=== PATIENT | female | born 1960 | race Caucasian/White ===

== ENCOUNTER → 2016-12-13 | Day surgery (SDC) | payer OTHER ==
[~2016-12-13] VITALS: Ht 170.2 cm; Wt 56.2 kg
[~2016-12-13] MED LIST: AMIT10TA6 PO; CA C1TAB86 PO; CHOL200047 PO; IBUP200C PO; MAGN100T5 PO; MELA1TAB16 PO; PYR50 PO; Sodium Chloride LOK Flush 10 mL Syringe IV PRN; VALE530C PO; VITA100T8 PO; fentaNYL-PF 50 mCg/mL 2 mL Inj IVPUSH PRN
[2016-12-13 08:20] VITALS: BP 140/93; PULSE 74; RESP 16; O2SAT 100
[2016-12-13] MEDS: 0.9% Sodium Chloride 1,000 ML IV SCH ×2 (08:29→09:14)
[2016-12-13 09:25] VITALS: BP 109/75; PULSE 57; RESP 16; O2SAT 100
[2016-12-13 09:35] VITALS: BP 102/67; PULSE 55; RESP 16; O2SAT 100
[2016-12-13 09:45] VITALS: BP 108/69; PULSE 51; RESP 16; O2SAT 100
--- NOTE | 2016-12-13 11:08 | ENDO ---
[address] [address] ENDOSCOPY PROCEDURE PATIENT: LYNDSAY ROA : 1960 MR#: [id number] ADMIT: 12/13/2016 JOB ID: [id number] DATE: 12/13/2016 PROCEDURE: Colonoscopy. INDICATION: Personal history of colon polyps. The patient's ASA classification is 1. Mallampati score is 2. MEDICATIONS: 1. Versed 3 mg. 2. Fentanyl 75 mcg. INSTRUMENT USED: PCF H 180 AL PREPARATION QUALITY: Was good. PROCEDURE DETAILS: After informed consent was obtained, the patient was brought into the GI suite, where she was placed on oxygen via nasal cannula and monitored with continuous pulse oximeter, telemetry and blood pressure monitoring. A time-out was performed. Then, she was placed in the left lateral decubitus position and medications were administered for sedation. Digital rectal examination was performed. It was unremarkable. The colonoscope was then inserted into the rectum and advanced under direct visualization to the cecum, which was identified by the presence of the ileocecal valve and appendiceal orifice. In the transverse colon, there was an approximately 2-4 mm sessile polyp that was removed with a cold snare. Polyp, however, was not retrieved. The remainder of the colon examination was otherwise unremarkable. IMPRESSION: Transverse colon polyp. RECOMMENDATIONS: Repeat colonoscopy in five years, sooner if symptoms should dictate. COMPLICATIONS: None. ESTIMATED BLOOD LOSS: Less than 5 mL.
== END | disposition home or self-care (01) ==
LOC: END 00:28
PROVIDERS: ATTEND Internal Medicine Gastroenterology
DX: Z12.11 Encounter for screening for malignant neoplasm of colon (principal); K63.5 Polyp of colon; K59.00 Constipation, unspecified; R10.9 Unspecified abdominal pain; G47.00 Insomnia, unspecified; R35.0 Frequency of micturition; Z86.010 Personal history of colon polyps; Z79.899 Other long term (current) drug therapy